=== PATIENT | female | born 1980 | race Caucasian/White ===

== ENCOUNTER → 2017-12-14 14:36 | Outpatient (REF) | payer OTHER, SELFPAY ==
[2017-12-14 20:05] LABS: Amphetamine/Metha Screen,Urine Negative ng/mL (<1000); Barbiturates Screen,Urine Negative ng/mL (<200); Benzodiazepines Screen,Urine Positive ng/mL (200); Cannabinoid Screen,Urine Negative ng/mL (<50); Cocaine Screen,Urine Negative ng/g (<300); Methadone Screen,Urine Negative ng/mL (<300); Opiate Screen,Urine Negative ng/mL (<300); Phencyclidine Screen,Urine Negative ng/mL (<25)
== END ==
LOC: LAB 14:36
PROVIDERS: Visit Provider Emergency Medicine
DX: Z79.899 Other long term (current) drug therapy (principal)
CPT/HCPCS: 80305

== ENCOUNTER → 2018-03-10 13:14 | Outpatient (REF) | payer OTHER, SELFPAY ==
[2018-03-10 16:07] LABS: Amphetamine/Metha Screen,Urine Negative ng/mL (<1000); Barbiturates Screen,Urine Negative ng/mL (<200); Benzodiazepines Screen,Urine Positive ng/mL (200); Cannabinoid Screen,Urine Negative ng/mL (<50); Cocaine Screen,Urine Negative ng/g (<300); Methadone Screen,Urine Negative ng/mL (<300); Opiate Screen,Urine Negative ng/mL (<300); Phencyclidine Screen,Urine Negative ng/mL (<25)
== END ==
LOC: LAB 13:14
PROVIDERS: Visit Provider Emergency Medicine
DX: Z79.899 Other long term (current) drug therapy (principal)
CPT/HCPCS: 80305

== ENCOUNTER → 2018-06-07 15:35 | Outpatient (REF) | payer OTHER, SELFPAY ==
[2018-06-07 19:21] LABS: Amphetamine/Metha Screen,Urine Negative ng/mL (<1000); Barbiturates Screen,Urine Negative ng/mL (<200); Benzodiazepines Screen,Urine Positive ng/mL (<200); Cannabinoid Screen,Urine Negative ng/mL (<50); Cocaine Screen,Urine Negative ng/mL (<300); Methadone Screen,Urine Negative ng/mL (<300); Opiate Screen,Urine Negative ng/mL (<300); Phencyclidine Screen,Urine Negative ng/mL (<25)
== END ==
LOC: LAB 15:35
PROVIDERS: Visit Provider Emergency Medicine
DX: Z79.899 Other long term (current) drug therapy (principal)
CPT/HCPCS: 80305

== ENCOUNTER → 2018-10-05 17:33 | Outpatient (CLI) | payer OTHER, SELFPAY ==
[2018-10-05 18:26] LABS: Amphetamine/Metha Screen,Urine Negative ng/mL (<1000); Barbiturates Screen,Urine Negative ng/mL (<200); Benzodiazepines Screen,Urine Positive ng/mL (<200); Cannabinoid Screen,Urine Negative ng/mL (<50); Cocaine Screen,Urine Negative ng/mL (<300); Methadone Screen,Urine Negative ng/mL (<300); Opiate Screen,Urine Negative ng/mL (<300); Phencyclidine Screen,Urine Negative ng/mL (<25)
[2018-10-10 18:07] LABS: Alprazolam Positive (.); Benzodiazepines Positive ng/mL (Cutoff=100); Clonazepam Negative (Cutoff=100); Flurazepam Negative (Cutoff=100); Lorazepam Negative (Cutoff=100); Midazolam Negative (Cutoff=100); Temazepam Negative (Cutoff=100); Triazolam Negative (Cutoff=100)
== END ==
PROVIDERS: Visit Provider Emergency Medicine
DX: Z79.899 Other long term (current) drug therapy (principal)
CPT/HCPCS: 80305; 80346

== ENCOUNTER → 2019-02-04 18:57 | Outpatient (CLI) | payer OTHER, SELFPAY ==
[2019-02-04 19:25] LABS: Amphetamine/Metha Screen,Urine Negative ng/mL (<1000); Barbiturates Screen,Urine Negative ng/mL (<200); Benzodiazepines Screen,Urine Positive ng/mL (<200); Cannabinoid Screen,Urine Negative ng/mL (<50); Cocaine Screen,Urine Negative ng/mL (<300); Methadone Screen,Urine Negative ng/mL (<300); Opiate Screen,Urine Negative ng/mL (<300); Phencyclidine Screen,Urine Negative ng/mL (<25)
== END ==
PROVIDERS: Visit Provider Emergency Medicine
DX: Z79.899 Other long term (current) drug therapy (principal)
CPT/HCPCS: 80305

== ENCOUNTER → 2019-05-23 18:36 | Outpatient (CLI) | payer OTHER, SELFPAY ==
[2019-05-23 19:12] LABS: Amphetamine/Metha Screen,Urine Negative ng/mL (<1000); Barbiturates Screen,Urine Negative ng/mL (<200); Benzodiazepines Screen,Urine Positive ng/mL (<200); Cannabinoid Screen,Urine Negative ng/mL (<50); Cocaine Screen,Urine Negative ng/mL (<300); Methadone Screen,Urine Negative ng/mL (<300); Opiate Screen,Urine Negative ng/mL (<300); Phencyclidine Screen,Urine Negative ng/mL (<25)
== END ==
PROVIDERS: Visit Provider Emergency Medicine
DX: Z79.899 Other long term (current) drug therapy (principal)
CPT/HCPCS: 80305

== ENCOUNTER → 2019-08-23 18:16 | Outpatient (CLI) | payer OTHER, SELFPAY ==
[2019-08-23 19:38] LABS: Basophils % 0.3 % (0.1-2.0); Eosinophils % 0.5 % (0.1-12.0); Hematocrit 44.6 % (37.0-47.0); Hemoglobin 13.8 g/dL (12.2-16.2); Lymphocytes % 28.4 % (10-50); Mean Corpuscular Hemoglobin 31.2 pg (27.0-31.2); Mean Corpuscular Volume 100.6 fl (81-99); Mean Platelet Volume 9.6 fl (7.4-10.4); Monocytes # 0.4 K/mm3 (0.1-1.0); Monocytes % 5.4 % (1.7-9.3); Neutrophils # 4.5 K/mm3 (1.8-7.8); Neutrophils % 65.5 % (37.0-80.0); Platelet Count 263 K/mm3 (142-424); Red Blood Count 4.44 M/mm3 (4.20-5.40); Red Cell Distribution Width 13.4 % (11.5-17.5); White Blood Count 6.9 K/mm3 (4.8-10.8)
[2019-08-23 19:50] LABS: Amphetamine/Metha Screen,Urine Negative ng/mL (<1000); Barbiturates Screen,Urine Negative ng/mL (<200); Benzodiazepines Screen,Urine Positive ng/mL (<200); Cannabinoid Screen,Urine Negative ng/mL (<50); Cocaine Screen,Urine Negative ng/mL (<300); Methadone Screen,Urine Negative ng/mL (<300); Opiate Screen,Urine Negative ng/mL (<300); Phencyclidine Screen,Urine Negative ng/mL (<25)
[2019-08-23 20:05] LABS: Alanine Aminotransferase 14 U/L (12-78); Albumin Level 4.4 gm/dL (3.4-5.0); Albumin/Globulin Ratio 1.6 (1.1-1.8); Alkaline Phosphatase 63 U/L (46-116); Anion Gap 15.1 mEq/L (5-15); Aspartate Amino Transferase 14 U/L (15-37); Blood Urea Nitrogen 10 mg/dL (7-18); Calcium 8.9 mg/dL (8.5-10.1); Carbon Dioxide 24 mmol/L (21.0-32.0); Chloride 104 mmol/L (98-107); Creatinine,Serum 0.78 mg/dL (0.55-1.02); Estimated Glomerular Filt Rate 82 ml/min (>60); GFR (African American) 99 ML/MIN (>60); Globulin 2.8 gm/dl (1.3-3.2); Glucose 90 mg/dL (74-106); Lipase 152 u/L (73-393); Potassium 4.1 mmoL/L (3.5-5.1); Sodium 139 mmol/L (136-145); Total Protein,Serum 7.2 gm/dL (6.4-8.2)
== END ==
PROVIDERS: Visit Provider Emergency Medicine
DX: R53.83 Other fatigue (principal); Z79.899 Other long term (current) drug therapy
CPT/HCPCS: 80053; 80305; 83690; 85025

== ENCOUNTER → 2019-12-27 17:31 | Outpatient (CLI) | payer MEDICAID, SELFPAY ==
[2019-12-27 19:44] LABS: Amphetamine/Metha Screen,Urine Negative ng/mL (<1000); Barbiturates Screen,Urine Negative ng/mL (<200); Benzodiazepines Screen,Urine Positive ng/mL (<200); Cannabinoid Screen,Urine Negative ng/mL (<50); Cocaine Screen,Urine Negative ng/mL (<300); Methadone Screen,Urine Negative ng/mL (<300); Opiate Screen,Urine Negative ng/mL (<300); Phencyclidine Screen,Urine Negative ng/mL (<25)
== END ==
PROVIDERS: Visit Provider Emergency Medicine
DX: Z79.899 Other long term (current) drug therapy (principal)
CPT/HCPCS: 80305

== ENCOUNTER → 2021-01-30 07:50 | Outpatient (CLI) | payer MEDICAID, SELFPAY ==
[2021-01-31 08:32] LABS: Amphetamine/Metha Screen,Urine Negative ng/ml (<1000)
[2021-01-31 08:33] LABS: Barbiturates Screen,Urine Negative ng/ml (<200); Benzodiazepines Screen,Urine Positive ng/ml (<200)
[2021-01-31 08:34] LABS: Cannabinoid Screen,Urine Negative ng/ml (<50)
[2021-01-31 08:35] LABS: Cocaine Screen,Urine Negative ng/ml (<300); Methadone Screen,Urine Negative ng/ml (<300)
[2021-01-31 08:36] LABS: Opiate Screen,Urine Negative ng/ml (<300); Phencyclidine Screen,Urine Negative ng/ml (<25)
== END ==
PROVIDERS: Visit Provider Emergency Medicine
DX: Z79.899 Other long term (current) drug therapy (principal)
CPT/HCPCS: 80305

== ENCOUNTER → 2021-04-29 15:32 | Outpatient (CLI) | payer MEDICAID, SELFPAY ==
[2021-04-29 18:28] LABS: Phencyclidine Screen,Urine Negative ng/ml (<25)
[2021-04-29 18:37] LABS: Amphetamine/Metha Screen,Urine Negative ng/ml (<1000)
[2021-04-29 18:39] LABS: Benzodiazepines Screen,Urine Positive ng/ml (<200); Cannabinoid Screen,Urine Negative ng/ml (<50)
[2021-04-29 18:40] LABS: Barbiturates Screen,Urine Negative ng/ml (<200)
[2021-04-29 18:42] LABS: Methadone Screen,Urine Negative ng/ml (<300); Opiate Screen,Urine Negative ng/ml (<300)
[2021-04-29 18:43] LABS: Cocaine Screen,Urine Negative ng/ml (<300)
== END ==
PROVIDERS: Visit Provider Emergency Medicine
DX: Z79.899 Other long term (current) drug therapy (principal)
CPT/HCPCS: 80305

== ENCOUNTER → 2021-08-09 12:47 | Outpatient (CLI) | payer MEDICAID, SELFPAY ==
--- NOTE | 2021-08-09 12:47 | US_ITS ---
PROCEDURE: MM DIG MAMM BI DX W/CAD Digital Breast Tomosynthesis Included Morning CLINICAL INDICATION: right breast lump COMPARISON: US US BREAST RT COMPLETE from 08/09/2021 US US BREAST LT COMPLETE from 08/09/2021 TECHNIQUE: Standard CC and MLO images and 3D Tomosynthesis was obtained along with spot compression views and rolled views the right breast.. R2 CAD reviewed. FINDINGS: The breasts are extremely dense which lowers the sensitivity of mammography. Patient reports a palpable abnormality in the lower aspect of the right breast. A marker is placed on this region. There are no previous exams available for comparison. No suspicious appearing mass, malignant-appearing microcalcification, architectural distortion, or skin thickening. No enlarged nodes apparent asymmetric density is present in the superior aspect of the right breast the and is felt to be due to overlapping fibroglandular tissue with interspersed fat in this region on the 3D tomography. In the central aspect of the right breast on the CC view there is some asymmetric density but is felt to be due to overlapping fibroglandular tissue. Right breast ultrasound: 7 x 7 mm cyst at 12 o'clock. 10 x 9 mm cyst at 7 o'clock mid breast. No suspicious solid masses evident. Left breast ultrasound: No cystic or solid lesions apparent. IMPRESSION: Probably benign findings. No convincing evidence of malignancy. Cysts in the right breast at 12 o'clock and 7 o'clock. Recommend six-month mammographic and sonographic follow-up of the right breast. BI-RAD Category: 3 Probably Benign Finding Short Term Follow-Up FOLLOW-UP: 6M 6 Month Follow-up right breast No suspicious mass that would correspond to the area of palpable concern. Any suspicious palpable nodule should be managed on a clinical basis despite negative mammogram and negative ultrasound. (A letter has been sent to the patient regarding results of the study.) Dictated by: Vel Crockett MD 08/19/2021 09:38 Vel Crockett MD in [place] 08/19/2021 09:38
== END ==
PROVIDERS: PCP Emergency Medicine; Visit Provider Nurse Practitioner Family
DX: R92.2 Inconclusive mammogram (principal); N63.0 Unspecified lump in unspecified breast
CPT/HCPCS: 76641; 77062; 77066; G0279

== ENCOUNTER → 2021-10-23 14:28 | Outpatient (CLI) | payer MEDICAID, SELFPAY ==
[2021-10-23 15:04] LABS: Amphetamine/Metha Screen,Urine Negative ng/ml (<1000)
[2021-10-23 15:05] LABS: Barbiturates Screen,Urine Negative ng/ml (<200); Benzodiazepines Screen,Urine Positive ng/ml (<200)
[2021-10-23 15:06] LABS: Cannabinoid Screen,Urine Negative ng/ml (<50)
[2021-10-23 15:07] LABS: Cocaine Screen,Urine Negative ng/ml (<300); Methadone Screen,Urine Negative ng/ml (<300)
[2021-10-23 15:08] LABS: Opiate Screen,Urine Negative ng/ml (<300)
[2021-10-23 15:09] LABS: Phencyclidine Screen,Urine Negative ng/ml (<25)
[2021-10-23 18:44] LABS: Basophils % 0.6 % (0.1-2.0); Eosinophils % 0.6 % (0.1-12.0); Hematocrit 46.2 % (37.0-47.0); Hemoglobin 15.6 g/dL (12.2-16.2); Lymphocytes # 1.7 K/mm3 (0.7-4.5); Lymphocytes % 29.4 % (10-50); Mean Corpuscular HGB Conc 33.8 g/dL (31.8-35.4); Mean Corpuscular Hemoglobin 32.6 pg (27.0-31.2); Mean Corpuscular Volume 96.3 fl (81-99); Mean Platelet Volume 10.5 fl (7.4-10.4); Monocytes # 0.3 K/mm3 (0.1-1.0); Monocytes % 5.8 % (1.7-9.3); Neutrophils # 3.7 K/mm3 (1.8-7.8); Neutrophils % 63.7 % (37.0-80.0); Platelet Count 284 K/mm3 (142-424); Red Blood Count 4.79 M/mm3 (4.20-5.40); Red Cell Distribution Width 12.9 % (11.5-17.5); White Blood Count 5.7 K/mm3 (4.8-10.8)
[2021-10-23 19:04] LABS: Alanine Aminotransferase 5 U/L (12-78); Albumin Level 4.9 g/dl (3.5-5.0); Albumin/Globulin Ratio 1.8 (1.1-1.8); Alkaline Phosphatase 68 U/L (38-126); Anion Gap 13.3 mEq/L (5-15); Aspartate Amino Transferase 22 U/L (14-36); Bilirubin,Total 1.2 mg/dl (0.2-1.3); Blood Urea Nitrogen 12 mg/dl (7-17); Calcium 9.7 mg/dl (8.4-10.2); Carbon Dioxide 24 mmol/L (22.0-30.0); Chloride 106 mmol/L (98-107); Chol/HDL Ratio 3.5 (1-3.5); Cholesterol 189 mg/dl (140-200); Estimated Glomerular Filt Rate 92 ml/min (>60); GFR (African American) 111 ML/MIN (>60); Globulin 2.7 g/dL (1.3-3.2); Glucose 103 mg/dl (74-100); HDL Cholesterol 54 mg/dl (40-60); Potassium 4.3 mmoL/L (3.5-5.1); Sodium 139 mmol/L (136-145); Total Protein,Serum 7.6 g/dl (6.3-8.2); Triglycerides 75 mg/dl (30-150); VLDL Cholesterol 15 mg/dL (0-40)
[2021-10-23 19:11] LABS: Erythrocyte Sedimentation Rate 8 mm/hr (0-20)
[2021-10-23 19:15] LABS: Direct LDL Cholesterol 128.51 mg/dL (100-129)
[2021-10-23 19:16] LABS: 25-OH Vitamin D, Total 41.1 ng/mL (30-100)
[2021-10-23 19:18] LABS: Free T4 (Free Thyroxine) 1.17 ng/dl (0.78-2.19)
[2021-10-23 19:33] LABS: Thyroid Stimulating Hormone 1.52 uIU/mL (0.465-4.68)
[2021-10-25 11:28] LABS: Hep A Ab, IgM Negative (Negative); Hepatitis B Core Antibody IgM Negative (Negative); Hepatitis B Surface Antigen Negative (Negative); Hepatitis C Antibody <0.1 s/co ratio (0.0-0.9)
== END ==
PROVIDERS: Visit Provider Emergency Medicine
DX: Z79.899 Other long term (current) drug therapy (principal); R53.83 Other fatigue; E55.9 Vitamin D deficiency, unspecified
CPT/HCPCS: 80053; 80061; 80074; 80305; 82306; 84439; 84443; 85025; 85651

== ENCOUNTER → 2022-01-22 14:07 | Outpatient (CLI) | payer MEDICAID, SELFPAY ==
[2022-01-22 18:04] LABS: Amphetamine/Metha Screen,Urine Negative ng/ml (<1000)
[2022-01-22 18:05] LABS: Barbiturates Screen,Urine Negative ng/ml (<200)
[2022-01-22 18:06] LABS: Benzodiazepines Screen,Urine Positive ng/ml (<200); Cannabinoid Screen,Urine Negative ng/ml (<50)
[2022-01-22 18:07] LABS: Cocaine Screen,Urine Negative ng/ml (<300)
[2022-01-22 18:08] LABS: Methadone Screen,Urine Negative ng/ml (<300); Opiate Screen,Urine Negative ng/ml (<300)
[2022-01-22 18:09] LABS: Phencyclidine Screen,Urine Negative ng/ml (<25)
== END ==
PROVIDERS: Visit Provider Emergency Medicine
DX: Z79.899 Other long term (current) drug therapy (principal)
CPT/HCPCS: 80305

== ENCOUNTER → 2022-04-18 16:16 | Outpatient (CLI) | payer MEDICAID, SELFPAY ==
[2022-04-18 13:24] LABS: Amphetamine/Metha Screen,Urine Negative ng/ml (<1000); Benzodiazepines Screen,Urine Positive ng/ml (<200)
[2022-04-18 13:25] LABS: Barbiturates Screen,Urine Negative ng/ml (<200)
[2022-04-18 13:26] LABS: Cannabinoid Screen,Urine Negative ng/ml (<50); Cocaine Screen,Urine Negative ng/ml (<300)
[2022-04-18 13:27] LABS: Methadone Screen,Urine Negative ng/ml (<300); Opiate Screen,Urine Negative ng/ml (<300)
[2022-04-18 13:28] LABS: Phencyclidine Screen,Urine Negative ng/ml (<25)
== END ==
PROVIDERS: Visit Provider Emergency Medicine
DX: F41.9 Anxiety disorder, unspecified (principal); M79.2 Neuralgia and neuritis, unspecified; Z79.899 Other long term (current) drug therapy
CPT/HCPCS: 80305

== ENCOUNTER → 2022-07-14 07:05 | Outpatient (CLI) | payer MEDICAID, SELFPAY ==
[2022-07-14 19:08] LABS: Coronavirus 19, PCR Not Detected (NotDetected); Influenza A, PCR Not Detected (NotDetected); Influenza B, PCR Not Detected (NotDetected)
== END ==
PROVIDERS: PCP Emergency Medicine; Visit Provider Emergency Medicine
DX: R29.90 Unspecified symptoms and signs involving the nervous system (principal); U09.9 Post COVID-19 condition, unspecified
CPT/HCPCS: C9803; U0003; U0005

== ENCOUNTER → 2023-01-07 13:00 | Outpatient (CLI) | payer MEDICAID, SELFPAY ==
[2023-01-07 15:50] LABS: Barbiturates Screen,Urine Negative ng/ml (<200)
[2023-01-07 15:51] LABS: Amphetamine/Metha Screen,Urine Negative ng/ml (<1000); Benzodiazepines Screen,Urine Positive ng/ml (<200)
[2023-01-07 15:52] LABS: Cocaine Screen,Urine Negative ng/ml (<300)
[2023-01-07 15:53] LABS: Cannabinoid Screen,Urine Negative ng/ml (<50); Methadone Screen,Urine Negative ng/ml (<300)
[2023-01-07 15:54] LABS: Opiate Screen,Urine Negative ng/ml (<300)
[2023-01-07 15:55] LABS: Phencyclidine Screen,Urine Negative ng/ml (<25)
[2023-01-07 18:40] LABS: Basophils % 0.6 % (0.1-2.0); Eosinophils % 0.4 % (0.1-12.0); Hematocrit 43.5 % (37.0-47.0); Hemoglobin 14.3 g/dL (12.2-16.2); Lymphocytes # 1.7 K/mm3 (0.7-4.5); Lymphocytes % 23.2 % (10-50); Mean Corpuscular Hemoglobin 32.6 pg (27.0-31.2); Monocytes # 0.3 K/mm3 (0.1-1.0); Monocytes % 4.4 % (1.7-9.3); Neutrophils # 5.1 K/mm3 (1.8-7.8); Neutrophils % 71.4 % (37.0-80.0); Platelet Count 275 K/mm3 (142-424); Red Blood Count 4.39 M/mm3 (4.20-5.40); Red Cell Distribution Width 13.2 % (11.5-17.5); White Blood Count 7.2 K/mm3 (4.8-10.8)
[2023-01-07 19:37] LABS: Alanine Aminotransferase 12 U/L (12-78); Albumin Level 4.9 g/dl (3.5-5.0); Albumin/Globulin Ratio 1.8 (1.1-1.8); Alkaline Phosphatase 77 U/L (38-126); Anion Gap 11.7 mEq/L (5-15); Aspartate Amino Transferase 21 U/L (14-36); Bilirubin,Total 1.2 mg/dl (0.2-1.3); Blood Urea Nitrogen 7 mg/dl (7-17); Calcium 9.1 mg/dl (8.4-10.2); Carbon Dioxide 23 mmol/L (22.0-30.0); Chloride 109 mmol/L (98-107); Chol/HDL Ratio 3.6 (1-3.5); Cholesterol 174 mg/dl (140-200); Estimated Glomerular Filt Rate 109 ml/min (>60); GFR (African American) 132 ML/MIN (>60); Globulin 2.7 g/dL (1.3-3.2); Glucose 114 mg/dl (74-100); HDL Cholesterol 48 mg/dl (40-60); Potassium 3.7 mmoL/L (3.5-5.1); Sodium 140 mmol/L (136-145); Total Protein,Serum 7.6 g/dl (6.3-8.2); Triglycerides 84 mg/dl (30-150); VLDL Cholesterol 17 mg/dL (0-40)
[2023-01-07 19:48] LABS: Direct LDL Cholesterol 112.72 mg/dL (100-129)
[2023-01-07 19:53] LABS: Free T4 (Free Thyroxine) 1.05 ng/dl (0.78-2.19)
[2023-01-07 19:54] LABS: 25-OH Vitamin D, Total 23.7 ng/mL (30-100)
[2023-01-07 20:06] LABS: Thyroid Stimulating Hormone 0.84 uIU/mL (0.465-4.68)
== END ==
PROVIDERS: PCP Emergency Medicine; Visit Provider Emergency Medicine
DX: Z79.899 Other long term (current) drug therapy (principal); R53.83 Other fatigue; E55.9 Vitamin D deficiency, unspecified
CPT/HCPCS: 80053; 80061; 80305; 82306; 84439; 84443; 85025

== ENCOUNTER → 2023-04-03 23:26 | Outpatient (CLI) | payer MEDICAID, SELFPAY ==
[2023-04-03 19:31] LABS: Amphetamine/Metha Screen,Urine Negative ng/ml (<1000); Barbiturates Screen,Urine Negative ng/ml (<200)
[2023-04-03 19:32] LABS: Benzodiazepines Screen,Urine Positive ng/ml (<200)
[2023-04-03 19:33] LABS: Cannabinoid Screen,Urine Negative ng/ml (<50); Cocaine Screen,Urine Negative ng/ml (<300)
[2023-04-03 19:34] LABS: Methadone Screen,Urine Negative ng/ml (<300); Opiate Screen,Urine Negative ng/ml (<300)
[2023-04-03 19:35] LABS: Phencyclidine Screen,Urine Negative ng/ml (<25)
== END ==
LOC: LAB.DROPOF 23:26
PROVIDERS: PCP Emergency Medicine; Visit Provider Emergency Medicine
DX: Z79.899 Other long term (current) drug therapy (principal)
CPT/HCPCS: 80305

== ENCOUNTER → 2023-07-01 23:20 | Outpatient (CLI) | payer MEDICAID, SELFPAY ==
[2023-07-01 22:15] LABS: Amphetamine/Metha Screen,Urine Negative ng/ml (<1000)
[2023-07-01 22:16] LABS: Barbiturates Screen,Urine Negative ng/ml (<200)
[2023-07-01 22:18] LABS: Benzodiazepines Screen,Urine Positive ng/ml (<200); Cannabinoid Screen,Urine Negative ng/ml (<50)
[2023-07-01 22:19] LABS: Cocaine Screen,Urine Negative ng/ml (<300); Methadone Screen,Urine Negative ng/ml (<300)
[2023-07-01 22:20] LABS: Opiate Screen,Urine Negative ng/ml (<300)
[2023-07-01 22:21] LABS: Phencyclidine Screen,Urine Negative ng/ml (<25)
== END ==
PROVIDERS: PCP Emergency Medicine; Visit Provider Emergency Medicine
DX: Z79.899 Other long term (current) drug therapy (principal)
CPT/HCPCS: 80305

== ENCOUNTER → 2023-08-07 13:20 | Outpatient (CLI) | payer MEDICAID, SELFPAY ==
[2023-08-07 19:18] LABS: Amphetamine/Metha Screen,Urine Negative ng/ml (<1000); Barbiturates Screen,Urine Negative ng/ml (<200)
[2023-08-07 19:19] LABS: Benzodiazepines Screen,Urine Positive ng/ml (<200); Cannabinoid Screen,Urine Negative ng/ml (<50)
[2023-08-07 19:20] LABS: Cocaine Screen,Urine Negative ng/ml (<300)
[2023-08-07 19:21] LABS: Methadone Screen,Urine Negative ng/ml (<300)
[2023-08-07 19:22] LABS: Opiate Screen,Urine Negative ng/ml (<300)
[2023-08-07 19:23] LABS: Phencyclidine Screen,Urine Negative ng/ml (<25)
== END ==
PROVIDERS: PCP Emergency Medicine; Visit Provider Emergency Medicine
DX: Z79.899 Other long term (current) drug therapy (principal)
CPT/HCPCS: 80305

== ENCOUNTER → 2023-09-29 09:26 | Outpatient (CLI) | payer MEDICAID, SELFPAY ==
[2023-09-29 19:57] LABS: Amphetamine/Metha Screen,Urine Negative ng/ml (<1000)
[2023-09-29 19:58] LABS: Barbiturates Screen,Urine Negative ng/ml (<200)
[2023-09-29 20:00] LABS: Benzodiazepines Screen,Urine Positive ng/ml (<200); Cannabinoid Screen,Urine Negative ng/ml (<50)
[2023-09-29 20:01] LABS: Cocaine Screen,Urine Negative ng/ml (<300)
[2023-09-29 20:02] LABS: Methadone Screen,Urine Negative ng/ml (<300); Opiate Screen,Urine Negative ng/ml (<300)
[2023-09-29 20:03] LABS: Phencyclidine Screen,Urine Negative ng/ml (<25)
== END ==
PROVIDERS: PCP Emergency Medicine; Visit Provider Emergency Medicine
DX: Z79.899 Other long term (current) drug therapy (principal)
CPT/HCPCS: 80305

== ENCOUNTER 2025-08-09 12:48 | Outpatient (CLI) | payer MEDICAID, SELFPAY ==
--- NOTE | 2025-08-09 | US_ITS ---
PROCEDURE INFORMATION: Exam: US Left Breast, Complete, Screening US Right Breast, Complete Exam date and time: 08/09/2025 12:58 PM Age: 44 years old Clinical indication: Follow-up probably benign findings in the right breast 12 o'clock and 7 o'clock position. TECHNIQUE: Imaging protocol: Complete ultrasound of all four quadrants of the left breast and the retroareolar regions, including ultrasound of the axilla when performed. Complete ultrasound of all four quadrants of the right breast and the retroareolar regions, including ultrasound of the axilla when performed. COMPARISON: US BREAST LT COMPLETE 08/09/2021 2:12 PM FINDINGS: ULTRASOUND: Breast ultrasound findings: In the right breast 1 o'clock axis, 3 cm from the nipple, there is an oval circumscribed parallel complicated cyst that measures 0.9 x 0.6 x 0.3 cm, similar in size and appearance to the finding at the 12 o'clock axis described on ultrasound of 08/09/2021. In the right breast 7 o'clock axis, 5 cm from the nipple, there is a cyst measuring 0.5 x 0.4 x 0.4 cm, smaller in size when compared to study of 08/09/2021. No suspicious masses are seen. Additional benign simple cyst in the right breast 10 o'clock axis, 8 cm from the nipple measuring 2 cm x 2.2 cm. Complete scanning of the left breast is performed. There are minimal scattered benign-appearing cysts. In both breasts, there is no dominant or suspicious mass, shadowing, or distortion. No axillary adenopathy. IMPRESSION: No sonographic evidence of malignancy. Findings in the right breast are stable since 08/09/2021. Annual mammographic screening is recommended unless otherwise clinically indicated. ASSESSMENT: BI-RADS Category 2: Benign.
== END 2025-08-09 23:59 | disposition home or self-care (01) ==
LOC: RAD 12:50
PROVIDERS: PCP Nurse Practitioner; Visit Provider Nurse Practitioner
DX: N60.01 Solitary cyst of right breast; N60.02 Solitary cyst of left breast
CPT/HCPCS: 76641